=== PATIENT | female | born 1940 | race Caucasian/White ===

== ENCOUNTER → 2016-11-27 | Outpatient (CLI) | payer MEDICARE, OTHER ==
[~2016-11-27] MED LIST: ALBU2.5V2 AEROSOL; ASPI325T PO; ATOR40TA64 PO; BIOT500C PO; CHOL400T11 PEG; HYDR1TAB82 PO; LEVO125T11 PO; LINA5TAB PO; MAGN400C PO; METF10002 PO; MIRT15TA6 PO; MULT-1175 PO; OXYC1TAB8 PO; PARO40TA72 PO
== END ==
LOC: WC.BC 15:29
DX: Z12.31 Encounter for screening mammogram for malignant neoplasm of breast (principal)
CPT/HCPCS: 77063; G0202

== ENCOUNTER 2017-03-04 05:47 | Inpatient (IN) ==
[~2017-03-04 05:47] MED LIST changes: +ACETAMINOPHEN 500 MG TABLET PO ONE; -ALBU2.5V2 AEROSOL; -ASPI325T PO; -ATOR40TA64 PO; -BIOT500C PO; +CEFAZOLIN 1 G INJECTION IVP ONE; -CHOL400T11 PEG; +FAMOTIDINE PREMIX 20 MG/50 ML BAG IV ONE; -HYDR1TAB82 PO; -LEVO125T11 PO; +LIDOCAINE 1% (10mg/ml) 10mL MDV SQ ONE; -LINA5TAB PO; +LR 1,000 ML IV SCH; -MAGN400C PO; +MELOXICAM 15 MG TABLET PO ONE; -METF10002 PO; +METOCLOPRAMIDE 10mg/2ml INJECTION IVP ONE; -MIRT15TA6 PO; -MULT-1175 PO; +NOZIN NASAL SWAB NAS ONE; +ONDANSETRON 4 MG/2 ML INJECTION IVP ONE; -OXYC1TAB8 PO; -PARO40TA72 PO; +SALINE FLUSH 10ml SYRINGE IVF PRN; +TRANEXAMIC ACID 1gm/NS 100ml IRR MIX IR ONE
--- NOTE | 2017-03-04 06:43 | Anesthesia Preoperative Report ---
Anesthesia Preoperative Record - Date and Time Date: 03/04/17 Preoperative Diagnosis: Right Knee OA Proposed Procedure: Right TOtal Knee NPO Since Date: 03/04/17 NPO Since Time: 00:00 Allergies/Adverse Reactions: Allergies Allergy/AdvReac Type Severity Reaction Status Date / Time clindamycin Allergy Unknown SWELLING, Verified 01/27/17 15:32 REDNESS digoxin Allergy Unknown RASH,SWOLLEN Verified 05/31/11 15:07 EYELID disopyramide Allergy Unknown SOA Verified 01/27/17 14:34 gabapentin Allergy Unknown RASH, ABD Verified 01/27/17 15:32 PAIN, SHAKEY quinidine Allergy Unknown SOA Verified 01/27/17 15:32 sulfamethoxazole Allergy Unknown Verified 05/31/11 15:07 trimethoprim Allergy Unknown Verified 05/31/11 15:07 amitriptyline AdvReac Unknown URINARY Verified 01/27/17 15:32 RETENTION,NAUSEA amoxicillin AdvReac Unknown GI UPSET Verified 01/27/17 15:32 atorvastatin AdvReac Unknown muscle Verified 02/27/17 09:48 spasms, feet and legs canagliflozin [From Invokana] AdvReac Unknown runny Verified 02/27/17 09:48 nose, cough, elevated blood sugar cefuroxime AdvReac Unknown GI UPSET Verified 01/27/17 15:32 inulin AdvReac Unknown VOMITING Verified 02/27/17 09:50 levofloxacin AdvReac Unknown ABD PAIN Verified 01/27/17 15:32 linagliptin AdvReac Unknown LUMPS AT Verified 02/27/17 09:50 INJECTION SITE metronidazole AdvReac Unknown NUMBNESS Verified 02/27/17 09:50 TO ALL EXTREMITIES mirtazapine AdvReac Unknown GI UPSET Verified 01/27/17 15:32 pramipexole AdvReac Unknown STOMACH Verified 01/27/17 14:34 PROBLEMS pravastatin AdvReac Unknown GI UPSET Verified 01/27/17 15:32 simvastatin AdvReac Unknown GI UPSET Verified 01/27/17 15:32 sitagliptin [From Januvia] AdvReac Unknown dyspnea on Verified 02/27/17 09:48 exertion verapamil HCl Allergy Severe SHORT OF Uncoded 09/09/15 23:29 AIR Lactobacillus rhamnosus GG AdvReac Unknown VOMITING Uncoded 02/27/17 09:50 - Vital Signs Vital Signs: Temp Pulse Resp BP Pulse Ox 98.1 F 68 14 149/72 H 92 03/04/17 06:06 03/04/17 06:26 03/04/17 06:06 03/04/17 06:06 03/04/17 06:06 Height and Weight: Height 5 ft 4 in Weight 69.9 kg Body Mass Index 26.4 - Medications Inpatient Medications: Current Medications Acetaminophen (Tylenol) 1,000 mg PO PREOP ONE Stop: 03/04/17 07:01 Cefazolin Sodium (Kefzol) 2 g IVP PREOP ONE Stop: 03/04/17 07:01 Epinephrine HCl 0.25 mg/Bupivacaine HCl 75 ml/Morphine Sulfate 15 mg/Ketorolac Tromethamine 60 mg/Sodium Chloride 65.25 mls @ 0 mls/hr IJ INTRAOP ONE; Per Protocol PRN Reason: Protocol Stop: 03/04/17 07:31 Famotidine/Sodium Chloride (Pepcid Premix) 20 mg in 50 mls @ 100 mls/hr IV PREOP ONE Stop: 03/04/17 07:29 Lactated Ringer's (Lactated Ringers) 1,000 mls @ 50 mls/hr IV .Q20H DINORA Isopropyl Alcohol (Nozin Nasal Swab) 3 each AMOL PREOP ONE Stop: 03/04/17 07:31 Lidocaine HCl (Xylocaine 1%) 1 mg SQ O ONE Stop: 03/04/17 07:01 Meloxicam (Mobic) 15 mg PO PREOP ONE Stop: 03/04/17 07:31 Metoclopramide HCl (Reglan) 10 mg IVP PREOP ONE Stop: 03/04/17 07:01 Miscellaneous Medication (Tranexamic 1gm/Ns 100 Irr Mix) 100 ml IR O ONE Stop: 03/04/17 07:31 Ondansetron HCl (Zofran) 4 mg IVP PREOP ONE Stop: 03/04/17 07:31 Sodium Chloride (Iv Flush) 10 - 80 ml IVF PRN PRN PRN Reason: [place] Home Medications: Home Medications Medication Instructions Recorded Confirmed Type Aspirin 325 mg PO QOD #0 tab 07/28/15 03/03/17 History LINAGLIPTIN 5mg [Tradjenta] 1 tab PO DAILY #0 tab 07/28/15 03/04/17 History Levothyroxine Sodium 125 mcg PO HS #0 tab 07/28/15 03/04/17 History Magnesium Oxide [Magnesium] 400 mg PO HS #0 cap 07/28/15 03/04/17 History Metformin HCl 1 tab PO BID #0 tab 07/28/15 03/04/17 History Multivitamin [Multi-Vitamin Daily] 1 tab PO DAILY #0 07/28/15 03/04/17 History PARoxetine HCl [Paroxetine HCl] 40 mg PO DAILY #0 tab 07/28/15 03/04/17 History Hydrocodone/Acetaminophen 1 tab PO DAILY #0 01/27/17 03/04/17 History [Hydrocodon-Acetaminoph 7.5-325] Ipratropium/Albuterol Sulfate 1 unit AEROSOL QID PRN #0 vial 01/27/17 03/04/17 History [Iprat-Albut 0.5-3(2.5) mg/3 ml] Papain [Papaya] 1 tab PO Q2-4HPRN PRN #0 01/27/17 03/04/17 History Rosuvastatin [Crestor] 5 mg PO HS #0 tab 01/27/17 03/04/17 History Ubidecarenone [Coq-10] 200 mg PO HS #0 01/27/17 03/04/17 History Cholecalciferol (Vitamin D3) 1 tab PO DAILY #0 01/28/17 03/04/17 History (Vitamin D) Cyanocobalamin (Vitamin B-12) 1 tab PO DAILY #0 01/28/17 03/04/17 History [Vitamin B12] Is Patient on Beta Otto?: No - Medical History Respiratory: Reports: Asthma (well controlled ) Cardiovascular: Reports: Arrhythmia (hx of Afib. currently SR), High Cholesterol (on meds.) Gastrointestional: Reports: Gastroesophageal Reflux Disease (occasional. controlled with meds.) Neuro/Musculoskeletal: Reports: Back Problems (lower back injections x many.), Cerebrovascular Accident (questionable. no residual effects.) Renal/Endocrine: Reports: Diabetes Mellitus Type 2 (controlled with meds.), Thyroid Disease (hypothyroid, on meds.) Other History: Reports: Anesthesia Reactions (slow to wake one time.) - Surgical History HEENT Surgeries: Reports: Eye Surgery (Cataract x2), Other (Exc neck mass) Cardiac Surgeries/Treatments: Reports: Cardiac Catheterization, Pacemaker ( [employer]Steps VERSA DR pacemaker;25 DEC 2006;Serial [id number];Model [id number]) Respiratory Surgery/Treatments: Reports: CPAP Use Endocrine Surgery/Treatments: Reports: Other (Parotidectomy) GI Surgery/Treatments: Reports: Appendectomy, Cholecystectomy, Colonoscopy ( Polyp), EGD Surgery/Treatment: REPORT: Other (MMK, Lithotripsy, urethropexy) Musculoskeletal Surgery/Tx: Reports: Knee Arthroscopy (Lt;), Orthopedic Surgery (ORIF left humerus), Shoulder Arthroscopy (Rt RCR), Total Knee Replacement (Lt) Reproductive Surgery/Treatment: Reports: Hysterectomy, Tubal Ligation, Other ( Lap fibroidectomy; breast reduction) - Social History Smoking Status: Never smoker Substance Use Type: does not use - Pertinent Findings EKG Rhythm: Normal Sinus Rhythm - Physical Exam Respiratory Exam: Present: lungs clear, bilateral breath sounds equal Cardiovascular Exam: Present: regular rate and rhythm, no murmur - Airway Assessment Mallampati Score: I TMD: 3 Fingerbreadths Neck Extension: good Teeth: upper dentures, lower dentures Overall Assessment: no airway concerns - ASA ASA Score: 3 - Plan Plan: SAB/TIVA/Post op Adductor canal block Anesthesia: General TIVA, Regional Block Regional/Trunk Block: Spinal - Discussion Discussion: Discussed risks/options/alternatives of anesthesia and questions answered. Patient consents. Nursing pain assessment noted. Present for Discussion: other (none) Attestation Statement: Prior to the delivery of any anesthetic medication, I examined the patient, developed the plan, obtained the patient's consent and discussed the risk and benefits of the procedure with the patient/guardian. - Additional Information Seen by Anesthesia: Yes
[2017-03-04] MEDS ORDERED: MIDAZOLAM 2mg/2ml INJECTION IVP ONE (06:45)
[2017-03-04] MEDS ORDERED: ACETAMINOPHEN 500 MG TABLET PO ONE (07:00)
[2017-03-04] MEDS ORDERED: CEFAZOLIN 1 G INJECTION IVP ONE (07:00)
[2017-03-04] MEDS ORDERED: METOCLOPRAMIDE 10mg/2ml INJECTION IVP ONE (07:00)
[2017-03-04] MEDS ORDERED: LIDOCAINE 1% (10mg/ml) 10mL MDV SQ ONE (07:00)
[2017-03-04] MEDS ORDERED: LR 1,000 ML IV SCH (07:00)
[2017-03-04] MEDS ORDERED: SALINE FLUSH 10ml SYRINGE IVF PRN (07:00)
[2017-03-04] MEDS ORDERED: FAMOTIDINE PREMIX 20 MG/50 ML BAG IV ONE (07:00)
[2017-03-04] MEDS ORDERED: NOZIN NASAL SWAB NAS ONE ×2 (07:30→09:55)
[2017-03-04] MEDS ORDERED: EPINEPHrine 0.25 MG, BUPIVACAINE 0.25% PF 75 ML, MORPHINE SULFATE 15 MG, KETOROLAC INJ ... IJ ONE (07:30)
[2017-03-04] MEDS ORDERED: ONDANSETRON 4 MG/2 ML INJECTION IVP ONE (07:30)
[2017-03-04] MEDS ORDERED: MELOXICAM 15 MG TABLET PO ONE (07:30)
[2017-03-04] MEDS ORDERED: TRANEXAMIC ACID 1gm/NS 100ml IRR MIX IR ONE (07:30)
[2017-03-04] MEDS ORDERED: TRANEXAMIC ACID 1,000 MG in NS 100 ML IV ONE (07:30)
[2017-03-04] MEDS ORDERED: VANCOMYCIN 1,000 MG INJECTION ONE (07:45)
[2017-03-04] MEDS ORDERED: LIDOCAINE 2% (100mg/5mL) PF 5ml vl ONE (08:01)
[2017-03-04] MEDS ORDERED: PROPOFOL 500 MG/50 ML VIAL IV ONE (08:01)
[2017-03-04] MEDS ORDERED: NS 1,000 ML IV SCH ×2 (08:04→09:55)
[2017-03-04] MEDS ORDERED: ROPIVACAINE 0.5% (5mg/ml) 30ml INJ ONE (08:16)
[2017-03-04] MEDS ORDERED: PROPOFOL 40 ML ONE (08:20)
[2017-03-04] MEDS ORDERED: VANCOMYCIN 1,000 MG INJECTION IAR ONE (08:30)
[2017-03-04] MEDS ORDERED: PHENYLEPHRINE INJ 10 MG/ML VIAL ONE (08:38)
--- NOTE | 2017-03-04 08:39 | Operative Note ---
- Procedure Date of Admission: 03/04/17 Side: right Preoperative Diagnosis: knee primary DJD Postoperative Diagnosis: Same as preoperative diagnosis. Operation: Procedures Esophagogastroduodenoscopy [EGD] with closed biopsy (06/13/08) Operation: total knee arthroplasty (right) Surgeon: Ann Hector MD Manager Mechanical: RIC Moore Complications: None. Regional/Trunk Block: Spinal Estimated Blood Loss: See Anesthesia Record. Fluids: Please see Anesthesia Record. Description of Procedure: Mrs. Allen and her right knee were identified and marked in the preoperative holding area. She was brought back to the operating suite and placed supine on the operating table. Spinal anesthetic was administered. The operative lower extremity was prepped and draped in a sterile fashion. Timeout was performed. She had a fixed varus deformity without flexion contracture. An anterior midline incision followed by medial parapatellar arthrotomy was performed. The tourniquet was not used until cementing. Hemostasis was obtained with electrocautery. The patella was resurfaced to a size on. A distal femoral osteotomy was then performed in 5 of valgus using intramedullary guide. The femur was sized at a 4 and rotation set using the epicondylar axis. Distal femoral cuts were performed with a 4-in-1 cutting block. A proximal tibial cut was then made perpendicular to its long axis using an extramedullary guide. At this point remaining meniscus and osteophytes were removed and joint cocktail was injected throughout soft tissue. Trial components were placed with a 9 mm spacer. This allowed for full extension and flexion and the patella tracked well. The leg was then exsanguinated and the tourniquet inflated to 250 mmHg. The tibia was then stamped at a size 4 at the proper rotation. The bone was then prepared for cementing and Ralph Triathalon components were cemented into place and allowed to cure in extension. The tourniquet was then let down and hemostasis obtained with electrocautery. Betadine solution was used during the curing period for 3 minutes. 1 g of vancomycin powder was placed into the joint before the capsulotomy was repaired with #1 Vicryl. I then left my tax assistant close the subcutaneous tissue and skin with 2-0 Vicryl and Monocryl. Dermabond was used on the skin. The drapes were then removed and she was taken to recovery room under the care of anesthesia.
--- NOTE | 2017-03-04 09:46 | XRay Report ---
Indication: postoperative image right knee replacement PROCEDURE: XR knee RT 2V: Encounter: Initial Comparison: September 09, 2015 Findings: Postoperative changes of right total knee replacement are seen. There is expected postoperative subcutaneous gas. No evidence of hardware failure or acute fracture. No retained radiopaque surgical instruments or sponges. Overlying material causing artifact. Impression: New right total knee prosthesis without evidence of immediate complication. .
[2017-03-04] MEDS ORDERED: DiphenhydrAMINE 50 MG/ML INJECTION IVP PRN (09:55)
[2017-03-04] MEDS ORDERED: LORazepam 1 MG TABLET PO PRN (09:55)
[2017-03-04] MEDS ORDERED: IPRATROPIUM/ALBUTEROL 2.5mg-0.5mg/3ml NEB AEROSOL PRN (09:55)
[2017-03-04] MEDS ORDERED: NAPROXEN 220 MG TABLET PO PRN (09:55)
[2017-03-04] MEDS ORDERED: DiphenhydrAMINE 25 MG CAPSULE PO PRN (09:55)
[2017-03-04] MEDS ORDERED: ONDANSETRON 4 MG/2 ML INJECTION IVP PRN (09:55)
--- NOTE | 2017-03-04 10:09 | History & Physical Update ---
- History and Physical Update Date: 03/04/17 Update: I evaluated this patient and found no changes in the history and clinical exam findings. The treatment plan and recommendations are also unchanged from the previous documentation.
--- NOTE | 2017-03-04 10:38 | Anesthesia Procedure Note ---
Peripheral Nerve Blockade - Procedure Physician: Buzz Hector MD Date: 03/04/17 Surgical Procedure: Right Total Knee Replacement Discussion: Discussed risks/options/alternatives of anesthesia and questions answered. Patient consents. Nursing pain assessment noted. Block Start: 09:21 Block Stop: 09:27 Blocked Employed: Adductor Canal Indication: Post-Operative Pain Approach: Right Side Confirmed Position: Supine Patient: Consent, Risks/Benefits Discussed, Informed IV Sedation: No Sedation: Awake Initial Vital Signs: Temperature 98.1 F 03/04/17 06:06 Temperature Source Oral 03/04/17 06:06 Pulse Rate 72 03/04/17 06:06 Respiratory Rate 14 03/04/17 06:06 Blood Pressure 149/72 H 03/04/17 06:06 Blood Pressure Mean 97 03/04/17 06:06 Blood Pressure Position Sitting 03/04/17 06:06 Pulse Oximetry 92 03/04/17 06:06 Oxygen Delivery Method 03/04/17 06:06 Post Vital Signs: Temp Pulse Resp BP Pulse Ox 97.6 F 68 11 110/57 98 03/04/17 10:11 03/04/17 09:40 03/04/17 09:40 03/04/17 09:40 03/04/17 09:40 Initial Pain Pain Score: 0 Post Block Pain Score: 0 Prep: Chlorhexadine/ETOH Ultrasound Used?: Yes - Nerve Simulator Paresthesia/Pain: None - Injectate Ropivacaine (%): 0.5 Ropivacaine (mL): 30 Was Epi 1:200,000 Used?: No Injection: Injection made incrementally with constant monitoring and aspiration every ml
[2017-03-04] MEDS: PAROXETINE 40 MG TABLET PO SCH (11:00)
[2017-03-04] MEDS: ASPIRIN *EC* 325 MG TABLET PO SCH ×2 (11:00→21:26)
[2017-03-04] MEDS: POLYETHYL GLYCOL 3350 17gm PACKET PO SCH (11:01)
[2017-03-04] MEDS: DOCUSATE SODIUM 100 MG CAPSULE PO SCH ×2 (11:01→21:27)
[2017-03-04] MEDS: ACETAMINOPHEN 325 MG TABLET PO SCH ×4 (11:02→21:27)
--- NOTE | 2017-03-04 13:24 | Anesthesia Postoperative Note ---
- Date and Time Date: 03/04/17 Time: 13:23 - Status Patient Participated in Evaluation: Patient Participated in Person Vital Signs: Temp Pulse Resp BP Pulse Ox 97.6 F 61 20 131/67 99 03/04/17 10:11 03/04/17 13:05 03/04/17 11:37 03/04/17 13:05 03/04/17 13:05 Respiratory Function: Airway Patent Cardiovascular Function: Regular Pulse EKG Rhythm: Normal Sinus Rhythm Mental Status: Alert and Oriented Hydration: Taking PO Fluids Complications During Recover: None Apparent - Follow-Up Instructions Instructions: Per Surgeon
[2017-03-04] MEDS: INSULIN ASPART 100unit/ml INJECTION SQ PRN ×2 (14:39→21:49)
[2017-03-04] MEDS: OXYCODONE IR 5 MG TABLET PO PRN ×2 (14:39→21:48)
[2017-03-04] MEDS: NOZIN NASAL SWAB NAS SCH ×2 (14:39→21:26)
[2017-03-04] MEDS: CEFAZOLIN 2 G in NS 100 ML IV SCH ×2 (15:35→23:26)
[2017-03-04] MEDS: NS 1,000 ML IV SCH (18:11)
[2017-03-04] MEDS ORDERED: SENNOSIDES 8.6 MG TABLET PO SCH (22:00)
[2017-03-04] MEDS ORDERED: MAGNESIUM OXIDE 400 MG TABLET PO SCH (22:00)
[2017-03-04] MEDS ORDERED: ROSUVASTATIN 5 MG TABLET PO SCH (22:00)
[2017-03-04] MEDS ORDERED: LEVOTHYROXINE 125 MCG TABLET PO SCH (22:00)
[2017-03-05] MEDS: OXYCODONE IR 5 MG TABLET PO PRN ×4 (01:22→12:48)
[2017-03-05] MEDS: NOZIN NASAL SWAB NAS SCH ×2 (06:15→14:45)
[2017-03-05] MEDS ORDERED: SENNOSIDES 8.6 MG TABLET PO PRN (07:16)
--- NOTE | 2017-03-05 08:05 | Orthopedic Progress Note ---
Date: Subjective/Severity of Illness: Danielle is doing well. Pain is rated as an "8" but she appears comfortable. Denies CP, SOA, cough or other complaints. Her creat went from 0.9 to 1.1 . Hgb is 9.7 Pressure was a little low earlier this AM but is better now. Orthopedic Objective PO Vital signs: Temp Pulse Resp BP Pulse Ox 97.5 F 71 16 97/52 96 03/05/17 04:43 03/05/17 04:43 03/05/17 04:43 03/05/17 04:43 03/05/17 04:43 Height and Weight: Height 5 ft 4 in Weight 164 lb 3.91 oz Body Mass Index 26.4 - Constitutional General Appearance: Present: alert, no acute distress - Respiratory Exam Present: non-labored - Cardiovascular Exam Present: pedal pulses intact - Extremities Exam Extremities: Present: pulses intact - Surgical Site Incision: Mepilex dressing intact, no drainage - Neurological Exam Present: no deficits - Psychiatric Exam Present: alert - Labs Result Diagrams: 03/05/17 04:26 03/05/17 04:26 Abnormal lab results 03/05/17 03/05/17 Range/Units 04:26 04:26 RBC 3.14 L (4.00-5.20) M/MM3 Hgb 9.7 L (12-16) GM/DL Hct 29.4 L (36-46) % MPV 9.3 L (9.4-12.4) UM3 BUN 19.0 H (7-17) MG/DL Glucose 129 H (65-110) MG/DL H & H 03/05/17 Range/Units 04:26 Hgb 9.7 L (12-16) GM/DL Hct 29.4 L (36-46) % Orthopedic Assessment and Plan (1) Status post total right knee replacement Status: Acute Assessment and Plan: Will recheck labs at noon to monitor trends before considering discharge. Pain has generally been controlled. Will restart Metformin when renal function is confirmed stable. Monitor BGM's, sugars have been under good control. Current anti-coagulation protocol for VTE prophylaxis. SCD's. PT/OT services to improve independent function. Discharge Planning per Case Management. Hospital Course Summary Disclaimer: The visit summary below is not to be considered part of the above Progress Note.
[2017-03-05] MEDS: DOCUSATE SODIUM 100 MG CAPSULE PO SCH (08:14)
[2017-03-05] MEDS: PAROXETINE 40 MG TABLET PO SCH (08:14)
[2017-03-05] MEDS: ASPIRIN *EC* 325 MG TABLET PO SCH (08:14)
[2017-03-05] MEDS: ACETAMINOPHEN 325 MG TABLET PO SCH ×2 (08:14→12:48)
[2017-03-05] MEDS: POLYETHYL GLYCOL 3350 17gm PACKET PO SCH (08:15)
[2017-03-05] MEDS: NS 1,000 ML IV SCH (08:15)
[2017-03-05] MEDS: INSULIN ASPART 100unit/ml INJECTION SQ PRN ×2 (10:15→15:48)
--- NOTE | 2017-03-05 14:52 | Discharge Summary ---
Orthopedic Discharge Info Date of admission: 03/04/17 05:47 Primary care physician: Johnathan Dunlap MD Attending Physician: Buzz Hector MD Consults: 03/04/17 05:45 Consult to Anesthesiology [CONS] Routine Consulting Provider: RIC Owusu Reason For Exam: Preoperative Assessment 03/04/17 09:55 Case Management Consult [CONS] Routine Reason For Exam: Discharge Planning DME-Walker [CONS] Routine Height: 5 ft 4 in Weight: 154 lb 1.65 oz Comment: change dressing in 2 weeks Total Joint Outpatient Therapy [CONS] Routine Comment: change dressing in 2 weeks - Discharge Diagnosis (1) Status post total right knee replacement Status: Acute - Procedures Procedures: Procedures Right TKA - Laboratory Result Diagrams: 03/05/17 12:54 03/05/17 12:54 Laboratory: Abnormal lab results 03/05/17 03/05/17 03/05/17 Range/Units 04:26 04:26 12:54 RBC 3.14 L 3.34 L (4.00-5.20) M/MM3 Hgb 9.7 L 10.4 L (12-16) GM/DL Hct 29.4 L 31.4 L (36-46) % MPV 9.3 L 9.2 L (9.4-12.4) UM3 Lymph % (Auto) 14.7 L (23-45) % [place] % (Auto) 12.3 H (0-9.0) % Eos % (Auto) 7.9 H (0-4) % [place] # 0.9 H (0-0.8) T/MM3 Eos # 0.6 H (0-0.5) T/MM3 BUN 19.0 H (7-17) MG/DL Glucose 129 H (65-110) MG/DL 03/05/17 Range/Units 12:54 RBC (4.00-5.20) M/MM3 Hgb (12-16) GM/DL Hct (36-46) % MPV (9.4-12.4) UM3 Lymph % (Auto) (23-45) % [place] % (Auto) (0-9.0) % Eos % (Auto) (0-4) % [place] # (0-0.8) T/MM3 Eos # (0-0.5) T/MM3 BUN 19.0 H (7-17) MG/DL Glucose 117 H (65-110) MG/DL H & H 03/05/17 03/05/17 Range/Units 04:26 12:54 Hgb 9.7 L 10.4 L (12-16) GM/DL Hct 29.4 L 31.4 L (36-46) % Orthopedic Discharge HPI - HPI Comments This patient was admitted for elective surgical tx of end stage degenerative joint disease that failed to respond to conservative treatment. Further details of this is found in the admission H&P. Orthopedic Hospital Course Hospital course: 03/05/17 14:47 After appropriate preoperative clearance and signing of operative consent, the patient was given IV antibiotics, according to orthopedic protocol. The patient was taken to the operating room and underwent elective joint arthroplasty. Following surgery, antibiotics were discontinued less than 24 hours according to joint protocol. Appropriate anticoagulants were initiated and SCDs added for DVT prevention. The dressing was clean, dry, and intact. Pain control was obtained via multimodal approach. Bowel motivation addressed with scheduled and PRN medications. Early mobilization was initiated through PT services. Discharge arrangements made by a collaborative effort between the patient and Case Management. It was noted P/O day one that she had a 0.2 increase in her creatinine. Metformin was held, NSAIDS were held and a repeat noon BMP showed her creatinine had improved. Follow-up is scheduled in 2-3 weeks. Discharge instructions given by orthopedic providers and nursing staff at discharge. Discharge condition was good. Ongoing care required?: No - Postoperative Anemia labs monitored daily, no intervention required, HGB drop-acceptable - Other Postoperative Events see hospital course above Discharge Plan - Med Rec/Dispo Referrals/Follow Up: Buzz Hector MD [Physician] - 03/26/17 9:45 am Johnathan Dunlap MD [Family Provider] - (within the week to reassess BUN/ Creatine and review home medications.) [place] Instructions: [facility] [place] General Instructions, [facility] Ortho Postop Instructions Additional Instructions: [facility] ON 03/07/2017 AT 2:45PM FOR PHYSICAL THERAPY EVAL. PLEASE COMPLETE THE PAPERWORK IN THE [facility] FOLDER PRIOR TO THE APPOINTMENT. PHONE [phone] Prescriptions: New Acetaminophen [Tylenol] 650 mg PO QID #100 Oxycodone *Ir* [Roxicodone *Ir*] 5 - 15 mg PO Q3H PRN #60 PRN Reason: Breakthrough Pain Aspirin *EC* [Ecotrin] 325 mg PO BID #84 Continue Multivitamin [Multi-Vitamin Daily] 1 tab PO DAILY #0 PARoxetine HCl [Paroxetine HCl] 40 mg PO DAILY #0 tab Ipratropium/Albuterol Sulfate [Iprat-Albut 0.5-3(2.5) mg/3 ml] 1 unit AEROSOL QID PRN #0 vial PRN Reason: SHORTNESS OF AIR Ubidecarenone [Coq-10] 200 mg PO HS #0 Cholecalciferol (Vitamin D3) (Vitamin D) 1 tab PO DAILY #0 Levothyroxine Sodium 125 mcg PO HS #0 tab Magnesium Oxide [Magnesium] 400 mg PO HS #0 cap LINAGLIPTIN 5mg [Tradjenta] 1 tab PO DAILY #0 tab Rosuvastatin [Crestor] 5 mg PO HS #0 tab Papain [Papaya] 1 tab PO Q2-4HPRN PRN #0 PRN Reason: GASTROINTESTINAL UPSET Cyanocobalamin (Vitamin B-12) [Vitamin B12] 1 tab PO DAILY #0 Discontinued Metformin HCl 1 tab PO BID #0 tab Aspirin 325 mg PO QOD #0 tab Hydrocodone/Acetaminophen [Hydrocodon-Acetaminoph 7.5-325] 1 tab PO DAILY #0 - Disposition 01 Discharged Home, Self-Care
[2017-03-06] MEDS ORDERED: BISACODYL 10 MG SUPPOSITORY RECTALLY SCH (20:00)
== END 2017-03-05 16:05 | disposition home or self-care (01) | DRG 470 ==
LOC: SRG 05:47
PROVIDERS: ADMIT Orthopaedic Surgery; ATTEND Orthopaedic Surgery